=== PATIENT | male | born 1990 | race Caucasian/White ===

== ENCOUNTER 2024-11-14 08:23 | Emergency (ER) | payer SELFPAY ==
[~2024-11-14] VITALS: Ht 177.8 cm; Wt 73.0 kg
[2024-11-14 08:26] VITALS: BP 107/75; PULSE 80; RESP 18; TEMP 36.8; O2SAT 99
[2024-11-14] MEDS: ONDANSETRON HCL 4MG TABLET PO ONE (08:34)
== END 2024-11-14 08:44 | disposition home or self-care (01) ==
LOC: ER 08:44
DX: F15.10 Other stimulant abuse, uncomplicated (principal); E86.0 Dehydration; R11.0 Nausea
CPT/HCPCS: 99283; Q0162